=== PATIENT | female | born 1970 | race African-American/Black ===

== ENCOUNTER 2020-10-26 13:13 | Outpatient (CLI) | payer BC | END 2020-10-26 13:14 | disposition home or self-care (01) | LOC: CSHLAB 13:13 | PROVIDERS: ATTEND Obstetrics & Gynecology | DX: Z01.812 Encounter for preprocedural laboratory examination (principal); Z20.822 Contact with and (suspected) exposure to COVID-19; D25.9 Leiomyoma of uterus, unspecified; N93.9 Abnormal uterine and vaginal bleeding, unspecified | CPT/HCPCS: 84703; 85027; 86850; 86900; 86901; 87635; U0003; U0005 ==

== ENCOUNTER 2020-10-31 11:04 | Day surgery (SDC) | payer BC ==
[2020-10-26 14:54] LABS: Mean Corpuscular Hemoglobin 28.3 pg (27.0-33.0); Mean Corpuscular Volume 85.7 fl (81.6-98.3); Mean Platelet Volume 11.3 fl (7.4-10.4); Platelet Count 293 10x3/uL (150-450); RBC Distribution Width 12.6 % (11.5-14.5); White Blood Cell (WBC) Count 5.5 10x3/uL (3.5-10.5)
[2020-10-26 15:00] LABS: BHCG - Serum Negative (NEGATIVE); Pregs Control Background? CLEAR/WHITE (CLR/WHITE); Pregs Control Bar Appear? YES (CONTROL BAR)
[2020-10-27 01:51] LABS: SARS-CoV-2 PCR by NAA Not Detected (NotDetected)
[2020-10-30 11:01] VITALS: BMI 30.2
[2020-10-31] MEDS ORDERED: Gabapentin 300 MG CAP ONE (11:35)
[2020-10-31] MEDS ORDERED: Famotidine/PF 20 mg/2ml Vial ONE (11:36)
[2020-10-31] MEDS ORDERED: Lidocaine 1% MPF 2 ML VIAL ONE (11:36)
[2020-10-31] MEDS ORDERED: Midazolam HCl 2 mg/2 ml Vial ONE (12:43)
[2020-10-31] MEDS ORDERED: Fentanyl 250 MCG/5 ML VIAL ONE (12:49)
[2020-10-31] MEDS ORDERED: PROPOFOL 20 ML ONE (12:49)
[2020-10-31] MEDS ORDERED: Ondansetron PF 4 MG/2 ML Vial ONE (12:51)
[2020-10-31] MEDS ORDERED: Rocuronium Bromide 10 MG/ML (10ML VIAL) ONE (12:51)
[2020-10-31] MEDS ORDERED: Dexamethasone 4 mg/ml Vial ONE (12:51)
[2020-10-31] MEDS ORDERED: Lidocaine 1% PF 5 ML VIAL ONE (12:51)
[2020-10-31] MEDS ORDERED: Bupivacaine PF 0.5% 30 ML VIAL ONE (12:55)
[2020-10-31] MEDS ORDERED: EPINEPHrine 1 MG/ML AMP ONE (12:55)
[2020-10-31] MEDS ORDERED: Simethicone Chewable 80 MG TAB PO PRN (13:00)
[2020-10-31] MEDS ORDERED: Morphine 4 MG/ML VIAL SLOW IVP PRN (13:33)
[2020-10-31] MEDS ORDERED: Bisacodyl 10 MG SUPP PR PRN (13:33)
[2020-10-31] MEDS ORDERED: traMADol HCl 50 MG TAB PO PRN (13:33)
[2020-10-31] MEDS ORDERED: HYDROcodone/Acetaminophen 5/325 mg Tablet PO PRN (13:33)
[2020-10-31] MEDS ORDERED: Ondansetron PF 4 MG/2 ML Vial IVP PRN (13:33)
[2020-10-31] MEDS ORDERED: diphenhydrAMINE 25 MG CAP PO PRN (13:33)
[2020-10-31] MEDS ORDERED: Promethazine HCl 25 MG/ML VIAL IM PRN (13:33)
[2020-10-31] MEDS ORDERED: Glycopyrrolate 0.2 MG/ML 5 ML SYRINGE ONE (14:57)
[2020-10-31] MEDS ORDERED: Fentanyl 100 MCG/2 ML VIAL ONE (15:43)
[2020-10-31] MEDS: Sodium Chloride 0.9% 1,000 ML IV SCH ×2 (17:04→21:30)
[2020-10-31] MEDS: Ketorolac Tromethamine 30 MG/ML VIAL IVP SCH (18:26)
[2020-10-31] MEDS ORDERED: Zolpidem Tartrate 5 MG TAB PO PRN (21:00)
[2020-11-01] MEDS: Ketorolac Tromethamine 30 MG/ML VIAL IVP SCH (00:48)
[2020-11-01] MEDS ORDERED: Levothyroxine Sodium 50 MCG TAB PO SCH (06:00)
[2020-11-01] MEDS ORDERED: Ibuprofen 800 MG TAB PO SCH (06:00)
[2020-11-01] MEDS: Sodium Chloride 0.9% 1,000 ML IV SCH (06:03)
[2020-11-01] MEDS: HYDROcodone/Acetaminophen 5/325 mg Tablet PO PRN ×2 (06:46→10:37)
[2020-11-01 06:52] LABS: Hemoglobin 11.7 g/dL (12.0-15.5); Mean Corpuscular Hemoglobin 28.5 pg (27.0-33.0); Mean Corpuscular Volume 86.4 fl (81.6-98.3); Mean Platelet Volume 11.8 fl (7.4-10.4); Platelet Count 223 10x3/uL (150-450); RBC Distribution Width 12.5 % (11.5-14.5); Red Blood Cell (RBC) Count 4.11 10x6/uL (3.90-5.03)
[2020-11-01 07:47] VITALS: BP 119/65; TEMP 98.2
== END 2020-11-01 08:00 | disposition home or self-care (01) ==
LOC: CSHSDC 11:04 → CSHPED 13:47 → UNDOADMOB 13:47 → CSHSDC 11-01 08:00 → UNDODISOB 11-01 12:10
PROVIDERS: ATTEND Obstetrics & Gynecology
PROC: 0UT74ZZ Resection of Bilateral Fallopian Tubes, Percutaneous Endoscopic Approach (ICD-10-PCS; principal; 2020-10-31)
PROC: 0UT94ZZ Resection of Uterus, Percutaneous Endoscopic Approach (ICD-10-PCS; principal; 2020-10-31)
DX: D25.9 Leiomyoma of uterus, unspecified (principal); N72 Inflammatory disease of cervix uteri; K66.0 Peritoneal adhesions (postprocedural) (postinfection); E03.9 Hypothyroidism, unspecified; Z87.891 Personal history of nicotine dependence; Z79.899 Other long term (current) drug therapy; Z88.2 Allergy status to sulfonamides; Z91.018 Allergy to other foods; Z91.02 Food additives allergy status; Z91.041 Radiographic dye allergy status; Z98.1 Arthrodesis status
CPT/HCPCS: 84703; 85027; 86850; 86900; 86901; 87635; 88307; J0171; J0690; J1100; J1885; J2250; J2405; J2704; J3010; S0020; S0028; U0003; U0005

== ENCOUNTER 2024-03-17 07:40 | Outpatient (CLI) | payer BC | END 2024-03-17 07:41 | disposition home or self-care (01) | LOC: CSHRAD 07:40 | PROVIDERS: ATTEND Physician Assistant Medical | DX: R09.A2 Foreign body sensation, throat (principal); Z80.0 Family history of malignant neoplasm of digestive organs; R10.30 Lower abdominal pain, unspecified | CPT/HCPCS: 74220 ==